=== PATIENT | male | born 1960 | race Caucasian/White ===

== ENCOUNTER 2019-10-26 07:58 | Outpatient (CLI) | payer OTHER | END 2019-10-26 08:02 | disposition home or self-care (01) | LOC: TOM 07:58 | PROVIDERS: ATTEND Urology | DX: N40.0 Benign prostatic hyperplasia without lower urinary tract symptoms (principal); N20.0 Calculus of kidney; R31.1 Benign essential microscopic hematuria ==

== ENCOUNTER 2019-12-20 11:00 | Inpatient (IN) | payer OTHER ==
[~2019-12-20] VITALS: Ht 170.2 cm; Wt 94.3 kg
[~2019-12-20 11:00] MED LIST: ALTACE2.5 MG PO; GEMFIBROZIL PO; JANUMET 50-5001 EACH PO; JARDIANCE10 MG PO
[2019-12-27] MEDS ORDERED: GEMFIBROZIL600 MG (07:49)
[2019-12-27] MEDS ORDERED: OMEGA-3 ACID ETH1 GM (07:50)
[2019-12-27] MEDS ORDERED: OLMSRTN-AMLDPN1 EAC1 (07:50)
== END 2019-12-31 13:04 | disposition home or self-care (01) | DRG 661 ==
LOC: O/R 12-27 05:50 → SURH 12-27 05:50
PROVIDERS: ADMIT Urology; ATTEND Urology
PROC: 0T768DZ Dilation of Right Ureter with Intraluminal Device, Via Natural or Artificial Opening Endoscopic (ICD-10-PCS; 2019-12-27)
PROC: 0TC08ZZ Extirpation of Matter from Right Kidney, Via Natural or Artificial Opening Endoscopic (ICD-10-PCS; principal; 2019-12-27 07:00)
DX: N20.0 Calculus of kidney (principal); R31.9 Hematuria, unspecified; Z20.828 Contact with and (suspected) exposure to other viral communicable diseases

== ENCOUNTER 2021-10-01 07:30 | Outpatient (CLI) | payer OTHER ==
[~2021-10-01 07:30] MED LIST changes: +GEMFIBROZIL600 MG; +OLMSRTN-AMLDPN1 EAC1; +OMEGA-3 ACID ETH1 GM
== END 2021-10-01 07:46 | disposition home or self-care (01) ==
LOC: TOM 07:30
PROVIDERS: ATTEND Urology
DX: R31.1 Benign essential microscopic hematuria (principal); N13.1 Hydronephrosis with ureteral stricture, not elsewhere classified; N40.0 Benign prostatic hyperplasia without lower urinary tract symptoms; N20.0 Calculus of kidney

== ENCOUNTER 2023-11-18 12:57 | Emergency (ER) | payer OTHER ==
[~2023-11-18] VITALS: Ht 172.7 cm; Wt 56.7 kg
[2023-11-18] MEDS ORDERED: FARXIGA5 MG PO (13:46)
[2023-11-18] MEDS ORDERED: ROSUVASTATIN CAL5 MG PO (13:46)
[2023-11-18] MEDS ORDERED: DIOVAN40 MG PO (13:46)
[2023-11-18] MEDS ORDERED: KETOROLAC TROMETHAMINE 60 MG VIAL IM STA (14:59)
[2023-11-18] MEDS ORDERED: ORPHENADRINE CITRATE 30 MG/ML AMPUL IM STA (15:00)
== END 2023-11-18 16:12 | disposition home or self-care (01) ==
LOC: ER 12:59
DX: M50.20 Other cervical disc displacement, unspecified cervical region (principal); M50.30 Other cervical disc degeneration, unspecified cervical region; E11.9 Type 2 diabetes mellitus without complications; Z79.84 Long term (current) use of oral hypoglycemic drugs; I10 Essential (primary) hypertension